=== PATIENT | female | born 1970 | race American Indian/Alaskan Native ===

== ENCOUNTER 2017-09-02 09:14 | Emergency (ER) | payer SELFPAY | END 2017-09-02 09:15 | disposition left against medical advice (07) | LOC: ED 09:14 | DX: M54.9 Dorsalgia, unspecified (principal); Z53.21 Procedure and treatment not carried out due to patient leaving prior to being seen by health care provider ==

== ENCOUNTER 2017-09-25 20:06 | Emergency (ER) | payer BC ==
[2017-09-25] MEDS ORDERED: TORADOL IM ONE (23:56)
--- NOTE | 2017-09-26 00:42 | Emergency Department Report ---
ED Back Pain/Injury HPI - General Chief Complaint: Back Pain/Injury Stated Complaint: BACK PAIN Time Seen by Provider: 09/25/17 23:04 Source: patient Limitations: No Limitations - History of Present Illness Initial Comments: 46-year-old -[place] female comes in complaining of left back pain for greater than 2 months. Patient reports she has been evaluated multiple times but diagnosis was either UTI, kidney stones, constipation. Patient reports no intervention has helped. Patient reports that when you rub right ear hands or fingers on her skin if feels painful and burning on the top of her skin. Patient reports that she's had CT scans 2 which one showed that she had kidney stones. She was diagnosed with a UTI with her primary care provider. She does report a history of fibroids that was noticed on a CAT scan. Patient does report she was referred to a urologist but has not been able to make an appointment since [facility] was not N agreements on care for their patients. Patient reports that she's tried [id number] medication she's tried Sulema pain relief patches Tylenol or Motrin, Motrin PM which none has reported help. Patient does have a significant past medical history of CHF she is currently on Coreg Lasix potassium aspirin and spironolactone. Patient denies any fever or chills no dysuria no urinary urgency no urinary frequency. She denies any nausea vomiting or abdominal pain. MD Complaint: back pain -: month(s) (2) Similar Symptoms Previously: Yes Radiation: none Severity scale (0 -10): 9 Quality: burning (the skin) Consistency: constant Improves With: none Worsens With: none Associated Symptoms: denies other symptoms Treatments Prior to Arrival: cold therapy, heat therapy, NSAIDS, acetaminophen - Related Data Previous Rx's Medication Instructions Recorded Last Taken Type Diclofenac Sodium [Voltaren] 1 applic TP Q12H PRN #100 09/26/17 Unknown Rx gel..gram. Gabapentin [Neurontin] 100 mg PO Q8HR PRN #12 capsule 09/26/17 Unknown Rx Allergies Allergy/AdvReac Type Severity Reaction Status Date / Time No Known Allergies Allergy Unverified 07/23/13 12:30 ED Review of Systems ROS: Stated complaint: BACK PAIN Other details as noted in HPI Constitutional: denies: chills, fever Eyes: denies: eye pain, eye discharge, vision change ENT: denies: ear pain, throat pain Respiratory: denies: cough, shortness of breath, wheezing Cardiovascular: denies: chest pain, palpitations Endocrine: no symptoms reported Gastrointestinal: denies: abdominal pain, nausea, diarrhea Genitourinary: denies: urgency, dysuria, discharge Musculoskeletal: denies: back pain, joint swelling, arthralgia Skin: other (skin burning to her left flank area). denies: rash, lesions Neurological: denies: headache, weakness, paresthesias Psychiatric: denies: anxiety, depression Hematological/Lymphatic: denies: easy bleeding, easy bruising ED Past Medical Hx - Past Medical History Hx Hypertension: No Hx CVA: No Hx Deep Vein Thrombosis: No Hx Pulmonary Embolism: No Hx Dementia: Yes - Surgical History Additional Surgical History: CABBAGE - Social History Smoking Status: Never Smoker Substance Use Type: None - Medications Home Medications: Home Medications Medication Instructions Recorded Confirmed Last Taken Type Diclofenac Sodium [Voltaren] 1 applic TP Q12H PRN #100 09/26/17 Unknown Rx gel..gram. Gabapentin [Neurontin] 100 mg PO Q8HR PRN #12 capsule 09/26/17 Unknown Rx ED Physical Exam - General Limitations: No Limitations General appearance: alert, in no apparent distress - Head Head exam: Present: atraumatic, normocephalic - Eye Eye exam: Present: normal appearance - ENT ENT exam: Present: mucous membranes moist - Neck Neck exam: Present: normal inspection - Respiratory Respiratory exam: Present: normal lung sounds bilaterally. Absent: respiratory distress - Cardiovascular Cardiovascular Exam: Present: regular rate, normal rhythm. Absent: systolic murmur, diastolic murmur, rubs, gallop - GI/Abdominal GI/Abdominal exam: Present: soft, normal bowel sounds - Extremities Exam Extremities exam: Present: normal inspection - Back Exam Back exam: Present: normal inspection, full ROM, other (left flank back skin is very sensitive patient reports it james when I rub to her left back flank. No tenderness to deep palpation to the muscle.) - Neurological Exam Neurological exam: Present: alert, oriented X3 - Psychiatric Psychiatric exam: Present: normal affect, normal mood - Skin Skin exam: Present: warm, dry, intact, normal color, other (no rashes reported to her lower back.). Absent: rash ED Course Vital Signs 09/25/17 09/26/17 20:11 01:05 Temperature 98.5 F 98.9 F Pulse Rate 107 H 86 Respiratory 20 17 Rate Blood Pressure 151/89 Blood Pressure 131/82 [Right] O2 Sat by Pulse 100 100 Oximetry ED Medical Decision Making - Medical Decision Making Patient has been evaluated by this provider fast track. Discussed with patient I would give her Toradol injection for pain. Discussed with patient I would send her home on gabapentin 100 mg by mouth twice a day for a few days and for her to follow up with her primary care provider if this does not help with her burning to her left flank back pain. Patient verbalized understanding. Critical care attestation.: If time is entered above; I have spent that time in minutes in the direct care of this critically ill patient, excluding procedure time. ED Disposition Clinical Impression: Burning sensation of skin Disposition: - TO HOME OR SELFCARE Is pt being admited?: No Does the pt Need Aspirin: No Condition: Stable Additional Instructions: Take medication as prescribed. Use topical gel as prescribed. Follow up with the primary care provider if symptoms persist or gets worse I have listed 1 below. Prescriptions: Diclofenac Sodium [Voltaren] 1 applic TP Q12H PRN #100 gel..gram. PRN Reason: Pain Gabapentin [Neurontin] 100 mg PO Q8HR PRN #12 capsule PRN Reason: Pain Referrals: PRIMARY CARE, [Primary Care Provider] - 3-5 Days CATHERINE CARR MD [Staff Physician] - 3-5 Days RANJEET FELIPE JR, MD [Staff Physician] - 3-5 Days
[2017-09-26 01:28] LABS: Bilirubin,Urine NEG (Negative); Blood,Urine NEG (Negative); Color,Urine Straw (Yellow); Protein,Urine <15 mg/dL mg/dL (Negative); Urobilinogen,Urine < 2.0 mg/dL (<2.0); WBC,Urine < 1.0 /HPF (0.0-6.0)
[2017-09-26 01:50] VITALS: BP 131/82
== END 2017-09-26 01:05 | disposition home or self-care (01) ==
LOC: ED 20:06
DX: R20.8 Other disturbances of skin sensation (principal); F03.90 Unspecified dementia, unspecified severity, without behavioral disturbance, psychotic disturbance, mood disturbance, and anxiety; I50.9 Heart failure, unspecified; Z79.899 Other long term (current) drug therapy
CPT/HCPCS: 81001; 96372; 99283; J1885